=== PATIENT | female | born 1950 | race Caucasian/White ===

== ENCOUNTER 2023-09-30 13:00 | Outpatient (RCR) | payer MEDICARE, SELFPAY | END 2023-09-30 14:20 | disposition home or self-care (01) | LOC: HO.OT 13:00 | PROVIDERS: Absent Provider Surgery; PCP Family Medicine; Visit Provider Family Medicine | DX: S62.92XS Unspecified fracture of left hand, sequela (principal) | CPT/HCPCS: 97110; 97140; 97166; 97530; 97535 ==